=== PATIENT | female | born 1975 | race Caucasian/White ===

== ENCOUNTER → 2017-01-24 | Outpatient (CLI) | payer BC ==
[2017-01-24 15:03] LABS: BASOPHILS # (AUTO) 0.08 10*3/UL; BASOPHILS % (AUTO) 1.4 % (0-1); EOSINOPHILS % (AUTO) 8.3 % (0-8); HEMATOCRIT 42.5 % (37.0-47.0); HEMOGLOBIN 14.5 g/dL (12.0-16.0); IMM GRAN % (AUTO) 0.2 % (0-5); IMM GRAN# (AUTO) 0.01 10*3/UL; LYMPHOCYTES # (AUTO) 2.11 10*3/uL; LYMPHOCYTES % (AUTO) 37.5 % (10-50); MEAN CORPUSCULAR HEMOGLOBIN 31.2 PG (27-31); MEAN CORPUSCULAR HGB CONC 34.1 g/dL (33-37); MEAN PLATELET VOLUME 10.8 FL (7.4-12.2); MONOCYTES % (AUTO) 10.7 % (5-15); NEUTROPHILS # (AUTO) 2.36 10*3/UL; NEUTROPHILS % (AUTO) 41.9 % (50-80); PLATELET MORPHOLOGY COMMENT NORMAL MORPHOLOGY (NORM); RDW COEFFICIENT OF VARIATION 12.8 % (11.5-14.5); RED BLOOD COUNT 4.65 10^6/uL (4.20-5.40); WHITE BLOOD COUNT 5.63 10^3/uL (4.8-10.8)
[2017-01-24 15:04] LABS: BLOOD UREA NITROGEN 8 mg/dL (7-22); CALCIUM 8.9 mg/dL (8.7-10.7); CHLORIDE 105 meq/L (98-112); CREATININE 0.8 mg/dL (0.50-1.20); EST GLOMERULAR FILTRATION > 60 (>60 ml/min/1.73m(2)); GLUCOSE 85 mg/dL (78-110); POTASSIUM 4.1 meq/L (3.8-5.2); SODIUM 139 meq/L (135-145)
[2017-01-27 07:17] LABS: TTG AB IGA <1.2 U/mL (())
[2017-01-30 13:29] LABS: IGA, SERUM 130 mg/dL (61 - 356)
[2017-01-30 17:13] LABS: CELIAC DISEASE INTERPRETATION SEE COMMENTS (()); CELIAC GENE PAIRS PRESENT No (())
== END ==
LOC: LAB 11:10
DX: R19.7 Diarrhea, unspecified (principal); R10.84 Generalized abdominal pain
CPT/HCPCS: 80048; 82784; 83516; 84075; 85025; 86256; 86816

== ENCOUNTER → 2017-04-25 | Outpatient (CLI) | payer BC ==
--- NOTE | 2017-04-25 13:17 | DI ---
US PELVIC COMPLETE (NON OB),04/25/2017 10:29 AM: Clinical History: Ovarian cyst. Previous Exam: None at this facility. Findings: Multiple transabdominal grayscale and color Doppler sonographic images are obtained through the pelvi s, and demonstrate a 7.7 x 4.3 x 5.0 cm the uterus with a 9 mm endometrial stripe. There is a 4.3 x 2.7 x 4.0 cm submucosal fibroid There is a 1.7 x 1.6 cm shadowing echogenicity within the lower cervix. The right ovary not seen however, there is a large cystic area measuring 6.2 x 5.9 x 5.9 cm in diamet er. The left ovary is not well seen either, but there is a cyst within the left ovary measuring 6.0 x 4.2 x 5.4 cm. There is no detectable Doppler flow. Impression: 1. Bilateral adnexal cysts. Recommend followup imaging in 4-10 weeks to document resolution. 2. Large 4.3 x 2.7 x 4.0 cm fibroid within the posterior myometrium. 3. Shadowing mass within the cervix of unknown significance. This could represent postsurgical change s or could represent a calcified fibroid. Correlate clinically.
== END ==
LOC: US 10:25
PROVIDERS: ATTEND Physician Assistant Medical
DX: R10.2 Pelvic and perineal pain (principal); N83.292 Other ovarian cyst, left side; N83.291 Other ovarian cyst, right side; D25.9 Leiomyoma of uterus, unspecified
CPT/HCPCS: 76856

== ENCOUNTER → 2017-05-27 | Outpatient (CLI) | payer BC ==
--- NOTE | 2017-05-27 15:49 | DI ---
PELVIC ULTRASOUND, 05/27/2017 10:48 AM Clinical History: Right ovarian cyst. Previous Exam: 04/25/2017. Technique: Transabdominal scans are performed. The uterus measures 40 x 50 x 80 mm. The central uterine stripe measures 7 mm. The uterus has a breanna l appearance. There are cysts of both ovaries. The right cyst has an ovoid appearance and measures ap proximately 40 x 45 x 60 mm, and the left cyst measures approximately 35 x 50 x 60 mm. The left cyst is slightly more irregular in contour than the right cyst but is similar in appearance to the previou s study. The cysts have not changed significantly in size. There are no fluid collections or masses. Readin. There are bilateral ovarian cysts with the right and left cyst measuring 40 x 45 x 60 mm, and 35 x 50 x 60 mm, respectively. They have not changed significantly in size in both appear to be simple c ysts. 2. The uterus is unremarkable. There is no free fluid or mass present.
== END ==
LOC: US 10:43
PROVIDERS: ATTEND Physician Assistant Medical
DX: R10.2 Pelvic and perineal pain (principal); D25.9 Leiomyoma of uterus, unspecified; N83.201 Unspecified ovarian cyst, right side; N83.202 Unspecified ovarian cyst, left side
CPT/HCPCS: 76856

== ENCOUNTER 2017-11-04 11:23 | Observation (INO) ==
[~2017-11-04 11:23] MED LIST: BUPIVACAINE 0.25% W/ EPI - 10 ML VIAL ONE; CefOXitin Inj 2 GM in Sodium Chloride 0.9% 100 ML IV ONE; LIDOCAINE HCL 2 % 10 ML JELLY URO-JECT TOPICAL ONE; LIDOCAINE W/ SODIUM BICARB 0.5 ML SYR ONE; LIDOCAINE W/ SODIUM BICARB 0.5 ML SYR SUBD ONE; Lactated Ringers 2,000 ML PRIMARY IV ONE; Sodium Chloride 0.9% 100 ML IV ONE
[2017-11-04] MEDS: Lactated Ringers 1,000 ML PRIMARY IV SCH ×3 (11:39→21:23)
[2017-11-04 12:05] LABS: BILIRUBIN,URINE NEGATIVE (NEG); CLARITY,URINE CLEAR (CLEAR); COLOR,URINE YELLOW; GLUCOSE, URINE (UA) NEGATIVE (NEG); NITRATE,URINE NEGATIVE (NEG); OCCULT BLOOD,URINE NEGATIVE (NEG); PH,URINE 6.5 (5.0-8.5); PROTEIN,URINE NEGATIVE (NEG); UROBILINOGEN,URINE 0.2 mg/dL (0.2)
[2017-11-04 12:08] LABS: Hemoglobin [HGB] 14.4 g/dL (12.0-16.0)
[2017-11-04] MEDS ORDERED: SCOPOLAMINE HYDROBROMIDE 1.5 MG - 1 EACH PATCH TRANSDERM ONE ×2 (12:09→12:16)
[2017-11-04] MEDS ORDERED: Acetaminophen 1000mg Inj 1,000 MG/100 ML VIAL IV ONE ×2 (12:09→12:14)
[2017-11-04 12:11] LABS: SQUAMOUS EPITHELIAL CELL,UR RARE; URINE SAMPLE TYPE CLEAN CATCH URINE; URINE SPECIFIC GRAVITY - MAN 1.015
[2017-11-04] MEDS ORDERED: SUFENTANIL 50 MCG/1 ML ONE (12:12)
[2017-11-04] MEDS ORDERED: PROPOFOL 10 MG/1 ML (200 MG/20 ML) VIAL IV ONE (12:12)
[2017-11-04] MEDS ORDERED: MIDAZOLAM 5 MG/1 ML ONE (12:12)
[2017-11-04] MEDS ORDERED: KETAMINE 100 MG/1 ML - 5 ML ONE (12:12)
[2017-11-04] MEDS ORDERED: ROCURONIUM 10 MG/1 ML - 5 ML VIAL IVP ONE (12:13)
[2017-11-04] MEDS ORDERED: ONDANSETRON 4 MG/2 ML VIAL IVP PRN (12:14)
[2017-11-04] MEDS ORDERED: ATROPINE SULFATE 0.4 MG/1 ML VIAL IVP PRN (12:14)
[2017-11-04] MEDS ORDERED: NORMAL SALINE 10 ML SYRINGE FLUSH IVP PRN ×2 (12:14→15:30)
[2017-11-04] MEDS ORDERED: fentaNYL Inj 100 MCG/2 ML VIAL IVP PRN (12:14)
[2017-11-04] MEDS ORDERED: Ondansetron ODT Tab 8 MG TAB PO PRN ×2 (12:14→15:30)
[2017-11-04] MEDS ORDERED: Lactated Ringers 1,000 ML PRIMARY IV SCH (12:15)
[2017-11-04] MEDS ORDERED: Opium-Belladonna 30-16.2mg 1 EACH SUPP.RECT RECTAL ONE ×2 (13:28→13:33)
[2017-11-04] MEDS ORDERED: LIDOCAINE HCL 2 % 10 ML JELLY URO-JECT TOPICAL ONE (13:32)
[2017-11-04] MEDS ORDERED: Indigotindisulfonate Inj 40mg/5ml amp ONE (13:40)
[2017-11-04] MEDS ORDERED: DEXAMETHASONE PF 10 MG/1 ML VIAL ONE (13:41)
[2017-11-04] MEDS ORDERED: Lactated Ringers 2,000 ML PRIMARY IV ONE (15:03)
[2017-11-04] MEDS ORDERED: GLYCOPYRROLATE 0.2 MG/1 ML VIAL ONE (15:24)
[2017-11-04] MEDS ORDERED: NEOSTIGMINE 1 MG/1 ML - 10 ML ONE (15:24)
[2017-11-04] MEDS ORDERED: ONDANSETRON 4 MG/2 ML VIAL ONE (15:26)
[2017-11-04] MEDS ORDERED: IBUPROFEN 800 MG TABLET PO PRN (15:30)
[2017-11-04] MEDS ORDERED: LIDOCAINE HCL 2 % 10 ML JELLY URO-JECT TOPICAL PRN (15:30)
[2017-11-04] MEDS ORDERED: ESTROGENS,CONJUGATED 0.625 MG TABLET PO ONE (15:32)
--- NOTE | 2017-11-04 15:38 | OB.OP.NOTE ---
Operative Report Surgeon: Lotus Mattress Inspector: Darion Witt MD Anesthesia Type: General Anesthesia Provider: Sandy Eaton CRNA Surgery Date: 11/04/17 Preoperative Diagnosis: MMR/Dysmenorrhea/Ovarian Cysts Postoperative Diagnosis: Same with severe endometriosis Procedure: Robotic Hysterectomy/BSO/Cystoscopy Estimated Blood Loss (mL): 350 Fluids: 2400 ml Complications: None Findings at Surgery: Slightly enlarged uterus, likely containing small fibroids. There were dense adhesions of both ovaries to the pelvic sidewall and posterior uterus. Both contained chocolate cysts, with the right ovary enlarged to about 8 cm. At cystoscopy, both ureters ejected indigo carmine stained urine and the bladder dome was intact. There was no visible evidence of bowel, bladder, or ureter injury. Indications for the Procedure: MMR/Dysmenorrhe/Ovarian Cysts Description of Procedure: See dictated operative report. Plan: Overnight observation and discharge to home.
--- NOTE | 2017-11-04 15:59 | CRNA.PROGR ---
Anesthesia Time - - Start date: 11/04/17 End date: 11/04/17 - Procedure/Recovery Time Anesthesia : Time In: 12:50 Anesthesia : Time Out: 15:49 Anesthesia : Total Time: 179 - Total Anesthesia Time Total Anesthesia Time (minutes): 179 - Other Weight: 67.585 kg Height: 5 ft 8 in Body Mass Index (BMI): 22.6 Physical Status: P1 (Healthy) Anesthesia Type: General Anesthesia : ET
[2017-11-04] MEDS: HYDROmorphone 2 MG/1 ML IVP PRN ×3 (16:00→16:14)
--- NOTE | 2017-11-04 16:01 | CRNA.PROGR ---
Anesthesia Recovery Phase I - Post Anesthesia Evaluation Patient's Condition on Arrival in Phase I: Stable (Long surgery. Difficult dissection for surgeon. Has had small to moderate amounts of opiate for this type of procedure.) Patient's Condition on Arrival in Phase II: Stable
[2017-11-04] MEDS ORDERED: HYDROmorphone 2 MG/1 ML ONE (16:02)
[2017-11-04] MEDS ORDERED: oxyCODONE/APAP 7.5/325 Tab 1 TAB TAB PO ONE (16:28)
[2017-11-04] MEDS: oxyCODONE/APAP 7.5/325 Tab 1 TAB TAB PO PRN ×2 (17:38→21:21)
[2017-11-04] MEDS ORDERED: Influenza 17-18 Vaccine (6mo+) Quad 60mcg/0.5ml PF IM ONE (19:36)
[2017-11-04] MEDS: KETOROLAC 15 MG/1 ML VIAL IVP PRN (19:58)
[2017-11-04] MEDS: DOCUSATE 100 MG CAPSULE PO SCH (21:20)
[2017-11-05] MEDS: oxyCODONE/APAP 7.5/325 Tab 1 TAB TAB PO PRN ×2 (01:22→08:25)
[2017-11-05 04:20] VITALS: O2SAT 96
[2017-11-05 05:58] LABS: BASOPHILS # (AUTO) 0.02 10*3/UL; BASOPHILS % (AUTO) 0.2 % (0-1); EOSINOPHILS # (AUTO) 0.01 10*3/UL; EOSINOPHILS % (AUTO) 0.1 % (0-8); Hematocrit [HCT] 37.9 % (37.0-47.0); LYMPHOCYTES # (AUTO) 1.51 10*3/uL; MEAN CORPUSCULAR HEMOGLOBIN 30.9 PG (27-31); MEAN CORPUSCULAR HGB CONC 34.3 g/dL (33-37); MEAN PLATELET VOLUME 11.3 FL (7.4-12.2); MONOCYTES # (AUTO) 0.75 10*3/UL (0.3-0.8); MONOCYTES % (AUTO) 7.5 % (5-15); NEUTROPHILS # (AUTO) 7.68 10*3/UL; RED BLOOD COUNT 4.21 10^6/uL (4.20-5.40)
[2017-11-05 06:06] LABS: PLATELET MORPHOLOGY COMMENT NORMAL MORPHOLOGY (NORM); RBC MORPHOLOGY COMMENT NORMAL MORPHOLOGY (NORM); WBC MORPHOLOGY COMMENT NORMAL MORPHOLOGY (NORM)
[2017-11-05 07:10] VITALS: BP 114/74; RESP 17; TEMP 97.2
[2017-11-05] MEDS: KETOROLAC 15 MG/1 ML VIAL IVP PRN (07:11)
--- NOTE | 2017-11-05 07:43 | DCSUMMARY ---
Hospitalization Summary Admit Date: 11/04/17 Discharge Date: 11/05/17 Primary Diagnosis:: MMR/Dysmenorrhea Secondary Diagnosis:: Endometriosis Hospital Course: Robotic Hysterectomy/BSO on 11/04 without complication, but marked by significant endometriosis and pelvic adhesions. [place], and so was observed overnight. She was discharged to home on POD 1 in good condition to f/u in 2 weeks. Regular diet. Exam - Vitals Vital Signs: Vital Signs Temperature 97.2 F Temperature Source Temporal Artery Scan Pulse Rate [Pulse Oximeter] 68 Pulse Rate [Apical] 71 Pulse Rate 81 Respiratory Rate 17 Blood Pressure [Right Arm] 114/74 Blood Pressure 117/74 Pulse Ox 96 Oxygen Flow Rate 2 Oxygen Delivery Method Room Air Height 5 ft 7 in Weight 160 lb 6.4 oz
--- NOTE | 2017-11-05 07:44 | PDOC(PROG) ---
Subjective Post Op Day: 1 Pain Management: PO Gonzalez Catheter: No Flatus: Yes Diet: Regular Ambulating: Yes Concerns / Additional Information: Doing well this morning. Minimal pain. Bowel and bladder function normal. H/ H stable. Normal vitals. Assesstment / Plan Assessment / Plan: The patient is ready for discharge. Discharge to home.
[2017-11-05] MEDS: DOCUSATE 100 MG CAPSULE PO SCH (08:26)
== END 2017-11-05 09:19 | disposition home or self-care (01) ==
LOC: OR 11:23 → MED/SURG 11:23
PROVIDERS: ADMIT Obstetrics & Gynecology; ATTEND Obstetrics & Gynecology